=== PATIENT | male | born 1985 | race Caucasian/White ===

== ENCOUNTER 2018-10-15 21:59 | Emergency (ER) | payer OTHER ==
[~2018-10-15] VITALS: Ht 170.2 cm; Wt 93.4 kg
[2018-10-15] MEDS ORDERED: TESSALON PERLE100 MG PO (22:45)
[2018-10-15] MEDS ORDERED: PROAIR HFA INH8.5 GM IH (22:45)
--- NOTE | 2018-10-15 22:48 | Diagnostic Imaging Report ---
EXAMINATION: CXR 2 VIEW - HOPD INDICATION: Cough. No pain x2 days. COMPARISON: None FINDINGS: TUBES and LINES: None. LUNGS: Lungs are well inflated. Bilateral peribronchial cuffing. There is no evidence of pneumonia or pulmonary edema. PLEURA: No pleural effusion or pneumothorax. HEART AND MEDIASTINUM: The cardiomediastinal silhouette is unremarkable. BONES AND SOFT TISSUES: No acute osseous lesion. Soft tissues are unremarkable. UPPER ABDOMEN: No free air under the diaphragm. IMPRESSION: Bilateral peribronchial cuffing, which could represent viral etiology or reactive airway disease. Signed by: Dr. Abner Huntley M.D. on 10/15/2018 10:44 PM
[2018-10-15] MEDS ORDERED: BUTALB-ACETAMI1 EACH PO (23:11)
== END 2018-10-15 23:27 | disposition home or self-care (01) ==
LOC: FSED 21:59
DX: R04.0 Epistaxis (principal); R21 Rash and other nonspecific skin eruption; G43.909 Migraine, unspecified, not intractable, without status migrainosus; J06.9 Acute upper respiratory infection, unspecified; J32.1 Chronic frontal sinusitis; F17.200 Nicotine dependence, unspecified, uncomplicated; H11.33 Conjunctival hemorrhage, bilateral; B97.89 Other viral agents as the cause of diseases classified elsewhere
CPT/HCPCS: 71046; 99283